=== PATIENT | male | born 1980 | race Two or more races ===

== ENCOUNTER 2020-09-27 08:19 | Outpatient (REF) | payer OTHER, SELFPAY ==
--- NOTE | ~2020-09-27 | CT_ITS ---
EXAMINATION: CT CHEST WITHOUT CONTRAST CLINICAL INFORMATION: Pulmonary nodules. COMPARISON: CT chest 03/01/2020 TECHNIQUE: Multidetector volumetric CT imaging of the chest was done. Axial MIP volume rendering provided. Sagittal and coronal reformatted images were obtained. This CT examination was performed using dose optimization techniques as appropriate, variously including the following: *Automated exposure control *Adjustment of mA and/or kV according to patient size (this includes techniques or standardized protocols for targeted exams where dose is matched to indication/reason for exam; i.e. extremities or head) *Use of iterative reconstruction technique DLP: 193 mGy-cm FINDINGS: BANK CREDIT CARD COLLECTION CLERK: The expanded lungs are unremarkable. LUNGS: There is 2 mm nodule along the superior aspect of the left major fissure, axial image 132/5 probable intrafissural lymph node. A 2 mm nodule left upper lobe axial image 237/5. No additional pulmonary nodules seen. There is no mass or ground-glass density. MEDIASTINUM: The thyroid lobes are symmetric and normal. The central trachea and the bronchi are widely patent. Heart size and the great vessels are normal caliber. There is no pericardial effusion. No abnormal mediastinal or hilar lymph nodes seen. PLEURA: There is no pleural effusion. No pleural mass or thickening. AXILLA: No lymphadenopathy. UPPER ABDOMEN: The liver is diffusely attenuated. Otherwise, the rest of the liver, spleen, pancreas, and bilateral adrenal glands are unremarkable. OSSEOUS STRUCTURES: No lytic or sclerotic process seen. There is mild posterior spondylosis T6-T7 disc level. CT/CT chest wo con IMPRESSION: Stable 2 mm nodule along the left superior major fissure, likely intrafissural lymph node. 2 mm nodule lateral segment is stable. No new nodules seen.
== END 2020-09-27 08:20 | disposition home or self-care (01) ==
LOC: HO.CT 08:19
PROVIDERS: Visit Provider Internal Medicine Pulmonary Disease
DX: R91.8 Other nonspecific abnormal finding of lung field (principal)
CPT/HCPCS: 71250

== ENCOUNTER 2020-11-22 10:30 | Outpatient (REF) | payer OTHER, SELFPAY ==
--- NOTE | ~2020-11-22 | CT_ITS ---
EXAMINATION: CT ABDOMEN WITHOUT AND WITH CONTRAST CLINICAL INFORMATION: Right adrenal mass COMPARISON: Previous CT scans most recent CT from August 2020 from [facility] and abdominal MRI May 2019 TECHNIQUE: Contiguous axial thin section helical images of the abdomen were performed before and after the administration of oral contrast and 85 mL of Omnipaque 350 intravenous contrast. The data set was reformatted in the coronal and sagittal planes and reviewed on an independent workstation. This CT examination was performed using dose optimization techniques as appropriate, variously including the following: *Automated exposure control *Adjustment of mA and/or kV according to patient size (this includes techniques or standardized protocols for targeted exams where dose is matched to indication/reason for exam; i.e. extremities or head) *Use of iterative reconstruction technique DLP: 857 mGy-cm FINDINGS: LUNG BASES: The lung bases are clear. LIVER, GALLBLADDER, AND BILIARY TREE: The liver is low in attenuation suggestive of fatty infiltration. No focal liver lesion is seen. PANCREAS: Normal SPLEEN: Normal ADRENAL GLANDS AND KIDNEYS: The left adrenal gland has been removed. There is abnormal contour to the body of the right adrenal gland measuring 1 cm questionable for a small nodule. This is similar to recent exams. Hounsfield units are difficult to determine due to small size. Hounsfield units pre-IV contrast measure between -10 and 3. Hounsfield units post-IV contrast measure 54. Delayed Hounsfield units post-IV contrast measure 27. Relative washout measures 50%. This is suggestive of a benign lipid rich adenoma. BOWEL LOOPS: Normal LYMPH NODES: Normal. VASCULAR: Unremarkable. BONES: There are degenerative changes of the spine. CT/CT abdomen wo/w con IMPRESSION: The left adrenal gland has been removed. There is a stable small right adrenal nodule measuring 1 cm suggestive of a benign lipid rich adenoma. Fatty infiltration of the liver.
== END 2020-11-22 10:31 | disposition home or self-care (01) ==
LOC: HO.CT 10:30
PROVIDERS: Visit Provider Internal Medicine
DX: E27.8 Other specified disorders of adrenal gland (principal)
CPT/HCPCS: 74170

== ENCOUNTER 2020-12-01 06:44 | Outpatient (REF) | payer OTHER, SELFPAY ==
[2020-12-02 17:47] LABS: Adrenocorticotropic Hormone <5 pg/mL (6-50)
[2020-12-07 15:36] LABS: Dexamethasone 444 ng/dL
== END 2020-12-01 06:45 | disposition home or self-care (01) ==
LOC: HO.LAB 06:44
PROVIDERS: PCP Internal Medicine; Visit Provider Internal Medicine
DX: D35.00 Benign neoplasm of unspecified adrenal gland (principal)
CPT/HCPCS: 36415; 80299; 82024; 82533

== ENCOUNTER → 2020-12-08 10:39 | Outpatient (BNVA) | payer OTHER, SELFPAY | PROVIDERS: PCP Internal Medicine; Visit Provider Internal Medicine ==

== ENCOUNTER → 2021-02-24 14:47 | Outpatient (BNVA) | payer OTHER, SELFPAY | PROVIDERS: PCP Internal Medicine; Visit Provider Internal Medicine ==

== ENCOUNTER 2021-04-04 08:57 | Outpatient (REF) | payer OTHER, SELFPAY ==
[2021-04-04 09:47] LABS: Creatinine, mg/dL 189.58
[2021-04-04 12:46] LABS: Creatinine, 24Hr Urine 1.9 G/Day (1.0-2.0); Total Volume 24 Hour Urine 1025 mL
[2021-04-08 14:41] LABS: Metanephrine, Free 24U 133 mcg/24 h (58-203); Normetanephrine, Free 24U 361 mcg/24 h (88-649); Total Metanephrine, Free 24U 494 mcg/24 h (182-739); Total Volume 24U 1025 mL
[2021-04-11 16:37] LABS: CATF, 24 Ur Volume 1025 mL; CATF-24Ur Creatinine 1.89 g/24 h (0.50-2.15); Catecholamines,Tot. (E+NE) 24U 54 mcg/24 h (26-121); Dopamine, 24 Ur 512 mcg/24 h (52-480); Norepinephrine, 24 Ur 54 mcg/24 h (15-100)
== END 2021-04-04 08:58 | disposition home or self-care (01) ==
LOC: HO.LNP 08:57
PROVIDERS: Visit Provider Internal Medicine
DX: D35.00 Benign neoplasm of unspecified adrenal gland (principal)
CPT/HCPCS: 82384; 82570; 83835

== ENCOUNTER 2021-06-27 09:20 | Outpatient (REF) | payer OTHER, SELFPAY ==
[2021-06-27 10:17] LABS: Anion Gap 14 (12-20); Blood Urea Nitrogen 12 mg/dL (9-16); Calcium 9.3 mg/dL (8.4-10.2); Carbon Dioxide 24 mmol/L (22-29); Chloride 108 mmol/L (96-108); Estimated Glomerular Filt Rate > 60; Glucose Random 98 mg/dL (60-115); Potassium 4.7 mmol/L (3.3-5.1); Sodium 141 mmol/L (135-145)
[2021-06-29 03:37] LABS: DHEA Sulfate 234 mcg/dL (70-495)
[2021-06-29 21:27] LABS: Adrenocorticotropic Hormone 25 pg/mL (6-50)
[2021-07-01 11:01] LABS: Renin 0.28 ng/mL/h (0.25-5.82)
[2021-07-03 11:01] LABS: Metanephrine, Free 40 pg/mL (<=57); Normetanephrines, Free 68 pg/mL (<=148); Total Metanephrine, Free 108 pg/mL (<=205)
[2021-07-11 18:21] LABS: Catecholamine Frac, Total 604 pg/mL
== END 2021-06-27 09:21 | disposition home or self-care (01) ==
LOC: HO.LAB 09:20
PROVIDERS: PCP Internal Medicine; Visit Provider Internal Medicine
DX: D35.00 Benign neoplasm of unspecified adrenal gland (principal)
CPT/HCPCS: 36415; 80048; 82024; 82088; 82384; 82627; 83835; 84244

== ENCOUNTER → 2021-08-08 09:24 | Outpatient (BNVA) | payer OTHER, SELFPAY | PROVIDERS: PCP Internal Medicine; Visit Provider Internal Medicine ==

== ENCOUNTER 2022-07-24 09:34 | Outpatient (REF) | payer OTHER, SELFPAY ==
--- NOTE | ~2022-07-24 | MR_ITS ---
EXAMINATION: MR ABDOMEN WITHOUT AND WITH CONTRAST CLINICAL INFORMATION: Benign neoplasm of unspecified adrenal gland COMPARISON: CT 11/24/2021 and earlier TECHNIQUE: MR abdomen was performed without and with use of 10 mL intravenous Gadavist gadolinium contrast. Postcontrast images are performed in multiphase dynamic sequences. Imaging was performed in 3 planes. FINDINGS: LUNG BASES: The visualized lung bases are unremarkable. LIVER, GALLBLADDER, AND BILIARY TREE: There is diffuse loss of signal on opposed phase gradient echo T1-weighted images consistent with diffuse hepatic steatosis. No focal liver lesion seen. No biliary ductal dilatation. The gallbladder is unremarkable with no evidence of gallbladder wall thickening, or obvious pericholecystic inflammatory changes. PANCREAS: Unremarkable. SPLEEN: Normal. ADRENAL GLANDS: Left adrenal gland surgically absent. No recurrent mass in the adrenalectomy bed. Normal appearance of the right adrenal gland. No thickening or nodule seen. KIDNEYS AND URETERS: The kidneys are normal in size, shape, and enhance symmetrically. No hydronephrosis. No perinephric stranding. GASTROINTESTINAL TRACT: No bowel obstruction. No ascites or fluid collection. ABDOMINAL WALL: No significant hernia is appreciated. LYMPH NODES: No lymphadenopathy. VASCULAR: Unremarkable. OSSEOUS STRUCTURES: Marrow signal normal. MR/MR abdomen wo/w con IMPRESSION: Normal appearance of the right adrenal gland. No right adrenal mass or thickening seen. Hepatic steatosis.
== END 2022-07-24 09:35 | disposition home or self-care (01) ==
LOC: HO.MRI 09:34
PROVIDERS: PCP Internal Medicine; Visit Provider Internal Medicine
DX: D35.00 Benign neoplasm of unspecified adrenal gland (principal)
CPT/HCPCS: 74183; A9585

== ENCOUNTER 2022-11-06 10:39 | Emergency (ER) | payer OTHER, SELFPAY ==
--- NOTE | ~2022-11-06 | XR_ITS ---
EXAMINATION: XR CHEST CLINICAL INFORMATION: Right-sided pain COMPARISON: Previous chest CT most recent 2020 TECHNIQUE: 2 views of the chest were obtained. FINDINGS: No significant abnormality is noted involving the heart, lungs, mediastinum, bony thorax or soft tissues. XR/XR chest 2V IMPRESSION: Unremarkable examination.
[2022-11-06 11:04] VITALS: BP 132/82; PULSE 86; RESP 19; TEMP 36.6; O2SAT 99; BMI 34.0
--- NOTE | 2022-11-06 11:04 | ED.GENADULT ---
HPI - General Adult General Chief complaint: Chest Pain Stated complaint: Lung issues Related Data Home Medications Medication Instructions Recorded Confirmed omeprazole 20 mg capsule,delayed 20 mg PO QAM PRN 12/08/20 08/08/21 release Allergies Allergy/AdvReac Type Severity Reaction Status Date / Time No Known Allergies Allergy Verified 08/08/21 11:27 [facility] Past Medical History Medical History Adrenal adenoma Surgical History H/O partial adrenalectomy Family History Family History Father No problems noted. Mother Diabetes Social History Social History Alcohol intake: current Alcohol intake frequency: does not drink Patient Tobacco Use Status: Former Tobacco user Advance Directives: No Advance Directives Information Provided: No Physical Exam ED Vital Signs: BMI result Body Mass Index 34.0 Course Course Course Narrative: RME - 42 yo male with history of an adrenal incidentaloma s/p partial adrenalectomy who presents to the ER for evaluation of 10/10 right lung pain for the last month. Occasional SOB. Poor historian. He states he had a black thing in his lung and has a seen a ortho/prosthetic aide for it about a year ago. Plan: CXR, EKG, labs Reevaluation(s) Reevaluation #1: patient eloped from the ER Medical Decision Making Lab Data 11/06/22 11:28 11/06/22 11:28 Labs: Lab Results 11/06/22 11/06/22 Range/Units 11:28 11:28 WBC 8.2 (4.8-10.8) X10*3/uL RBC 5.66 (4.60-5.80) X10*6/uL Hgb 14.9 (14.0-18.0) g/dl Hct 45.8 (42.0-52.0) % MCV 80.9 (80.0-98.0) fL MCH 26.3 L (27.0-33.0) pg MCHC 32.5 (31.0-36.0) g/dl RDW 13.8 (11.0-16.0) % Plt Count 317 (160-400) X10*3/uL MPV 8.7 L (9.4-12.4) fL Immature Gran % (Auto) 0.1 (0.0-0.4) % Neut % (Auto) 56.8 (45-73) % Lymph % (Auto) 32.2 (20-40) % [place] % (Auto) 7.6 (2-11) % Eos % (Auto) 2.6 (0-4) % Baso % (Auto) 0.7 (0-2) % Lymph # (Auto) 2.6 (1.2-4.9) X10*3/uL [place] # (Auto) 0.6 (0.1-1.2) X10*3/uL Eos # (Auto) 0.2 (0.0-0.4) X10*3/uL Baso # (Auto) 0.1 (0.0-0.2) X10*3/uL Abs Immat Gran (auto) 0.01 (0.00-0.03) X10*3/uL Absolute Neuts (auto) 4.6 (2.0-8.3) x10*3/uL Absolute Nucleated RBC 0.000 (0.0-0.012) X10*3/uL Nucleated RBC % (auto) 0.0 (0.0-0.2) /100WBC Sodium 141 (135-145) mmol/L Potassium 4.0 (3.3-5.1) mmol/L Chloride 108 (96-108) mmol/L Carbon Dioxide 25 (22-29) mmol/L Anion Gap 12 (12-20) BUN 19 H (9-16) mg/dL Creatinine 0.78 (0.5-1.4) mg/dL Estim Creat Clear Calc 145.3 Estimated GFR > 60 Random Glucose 126 H (60-115) mg/dL Calcium 9.2 (8.4-10.2) mg/dL Magnesium 2.0 (1.6-2.6) mg/dL Total Bilirubin 0.4 (0.0-1.0) mg/dL Direct Bilirubin 0.1 (0.0-0.5) mg/dL AST 27 (5-37) U/L ALT 61 H (0-40) U/L Alkaline Phosphatase 117 (39-117) U/L Total Protein 7.3 (6.5-8.0) g/dL Albumin 4.2 (3.5-5.0) g/dL Discharge Plan Discharge Clinical Impression: Chest pain Patient Disposition: Elopement Prescriptions: No Action omeprazole 20 mg capsule,delayed release(DR/EC) 20 mg PO QAM PRN Interventions: ED Discharge Assessment Last Done: 11/06/22 16:21 Discharge Date/Time: 11/06/22 16:33
--- NOTE | 2022-11-06 11:07 | ECG_ITS ---
Test Reason : CP Blood Pressure : / mmHG Vent. Rate : 081 BPM Atrial Rate : 081 BPM P-R Int : 150 ms QRS Dur : 092 ms QT Int : 346 ms P-R-T Axes : 044 -03 015 degrees QTc Int : 401 ms Normal sinus rhythm Minimal voltage criteria for LVH, may be normal variant ( R in aVL ) Nonspecific T wave abnormality Abnormal ECG No previous ECGs available Referred By: Nevin Lozano Electronically Signed By:KIARA NATARAJAN MD
[2022-11-06 11:31] LABS: MANUAL DIFF FLAG NO
[2022-11-06 11:39] LABS: Basophils Absolute Auto 0.1 X10*3/uL (0.0-0.2); Basophils Percent Auto 0.7 % (0-2); Eosinophils Absolute Auto 0.2 X10*3/uL (0.0-0.4); Eosinophils Percent Auto 2.6 % (0-4); Hematocrit 45.8 % (42.0-52.0); Hemoglobin 14.9 g/dl (14.0-18.0); Imm Gran Abs Auto 0.01 X10*3/uL (0.00-0.03); Imm Gran Pct Auto 0.1 % (0.0-0.4); Lymphocytes Absolute Auto 2.6 X10*3/uL (1.2-4.9); Lymphocytes Percent Auto 32.2 % (20-40); Mean Corpuscular HGB Conc 32.5 g/dl (31.0-36.0); Mean Corpuscular Hemoglobin 26.3 pg (27.0-33.0); Mean Corpuscular Volume 80.9 fL (80.0-98.0); Mean Platelet Volume 8.7 fL (9.4-12.4); Monocytes Absolute Auto 0.6 X10*3/uL (0.1-1.2); Monocytes Percent Auto 7.6 % (2-11); Neutrophils Absolute Auto 4.6 x10*3/uL (2.0-8.3); Neutrophils Percent Auto 56.8 % (45-73); Platelet Count 317 X10*3/uL (160-400); Red Blood Count 5.66 X10*6/uL (4.60-5.80); Red Cell Distribution Width 13.8 % (11.0-16.0); White Blood Count 8.2 X10*3/uL (4.8-10.8)
[2022-11-06 11:48] LABS: Alanine Aminotransferase 61 U/L (0-40); Albumin Level 4.2 g/dL (3.5-5.0); Alkaline Phosphatase 117 U/L (39-117); Anion Gap 12 (12-20); Aspartate Amino Transferase 27 U/L (5-37); Bilirubin Direct 0.1 mg/dL (0.0-0.5); Bilirubin Total 0.4 mg/dL (0.0-1.0); Blood Urea Nitrogen 19 mg/dL (9-16); Calcium 9.2 mg/dL (8.4-10.2); Carbon Dioxide 25 mmol/L (22-29); Chloride 108 mmol/L (96-108); Creatinine Clr Calc Pharmacy 145.3; Estimated Glomerular Filt Rate > 60; Glucose Random 126 mg/dL (60-115); Sodium 141 mmol/L (135-145); Total Protein 7.3 g/dL (6.5-8.0)
--- NOTE | 2022-11-06 16:21 | PC.NURSE ---
called to come into Ed from waiting room x 3, no answer from patient
== END 2022-11-06 16:33 | disposition left against medical advice (07) ==
PROVIDERS: Physician Assistant; Emergency Provider Emergency Medicine; PCP Internal Medicine
DX: R07.89 Other chest pain (principal); Z79.899 Other long term (current) drug therapy
CPT/HCPCS: 36415; 71046; 80048; 80076; 83735; 85025; 93005; 99283

== ENCOUNTER 2022-11-11 07:03 | Outpatient (REF) | payer OTHER, SELFPAY ==
[2022-11-11 08:11] LABS: Anion Gap 12 (12-20); Blood Urea Nitrogen 18 mg/dL (9-16); Calcium 9.6 mg/dL (8.4-10.2); Carbon Dioxide 28 mmol/L (22-29); Chloride 105 mmol/L (96-108); Estimated Glomerular Filt Rate > 60; Glucose Random 112 mg/dL (60-115); Potassium 4.5 mmol/L (3.3-5.1); Sodium 140 mmol/L (135-145)
[2022-11-11 08:39] LABS: Cortisol Random 11.7 ug/dL
[2022-11-13 09:04] LABS: DHEA Sulfate 197 mcg/dL (61-442)
[2022-11-18 17:34] LABS: Metanephrine, Free 31 pg/mL (<=57); Normetanephrines, Free 48 pg/mL (<=148); Total Metanephrine, Free 79 pg/mL (<=205)
[2022-11-18 18:09] LABS: Adrenocorticotropic Hormone 37 pg/mL (6-50)
[2022-11-20 12:24] LABS: Renin 0.17 ng/mL/h (0.25-5.82)
[2022-11-22 16:58] LABS: Catecholamine Frac, Total 349 pg/mL
== END 2022-11-11 07:04 | disposition home or self-care (01) ==
LOC: HO.LAB 07:03
PROVIDERS: PCP Internal Medicine; Visit Provider Internal Medicine
DX: D35.00 Benign neoplasm of unspecified adrenal gland (principal)
CPT/HCPCS: 36415; 80048; 82024; 82088; 82384; 82533; 82627; 83835; 84244

== ENCOUNTER → 2022-11-22 09:48 | Outpatient (BNVA) | payer OTHER, SELFPAY | PROVIDERS: PCP Internal Medicine; Visit Provider Internal Medicine ==

== ENCOUNTER 2023-02-12 09:15 | Outpatient (REF) | payer OTHER, SELFPAY ==
--- NOTE | ~2023-02-12 | US_ITS ---
EXAMINATION: US ABDOMEN COMPLETE CLINICAL INFORMATION: Elevated LFTs. COMPARISON: MRI abdomen without and with contrast 07/24/2022. CT abdomen without and with contrast 11/22/2020. TECHNIQUE: Real-time imaging of the abdominal viscera. FINDINGS: PANCREAS: Not visualized due to shadowing from overlying bowel gas. ABDOMINAL AORTA: The proximal, mid, and distal segments are normal in caliber. INFERIOR VENA CAVA: Visualized portions are normal. LIVER: The liver is normal in size. Increased coarsening and echogenicity of the liver parenchyma with focal sparing adjacent to gallbladder fossa. No focal hepatic lesion. There is no intrahepatic biliary duct dilatation seen. GALLBLADDER: Normal. The gallbladder is physiologically distended without evidence of stones, sludge, polyps, wall thickening or pericholecystic fluid. COMMON BILE DUCT: Normal in caliber measuring 0.5 cm in diameter. RIGHT KIDNEY: Normal. No hydronephrosis. No renal calculi or focal parenchymal lesions. The kidney measures 12.4 cm in maximum dimension. LEFT KIDNEY: Normal. No hydronephrosis. No renal calculi or focal parenchymal lesions. The kidney measures 12.3 cm in maximum dimension. SPLEEN: Normal. The spleen measures 11.3 cm in maximum dimension. FREE FLUID: None. US/US abdomen complete IMPRESSION: Increased coarsening and echogenicity of the liver parenchyma suggesting hepatic steatosis or hepatocellular disease with areas of fatty sparing adjacent to the gallbladder fossa.
== END 2023-02-12 09:16 | disposition home or self-care (01) ==
LOC: HO.US 09:15
PROVIDERS: Visit Provider Internal Medicine
DX: R79.89 Other specified abnormal findings of blood chemistry (principal)
CPT/HCPCS: 76700

== ENCOUNTER 2023-03-01 09:57 | Outpatient (AMB) | payer OTHER, SELFPAY ==
[2023-03-01 10:02] VITALS: BP 127/70; PULSE 89; O2SAT 96; BMI 36.0
--- NOTE | 2023-03-01 10:02 | A.OFFVIS_ITS ---
Intake Vital Signs 03/01/23 10:02 Height 5 ft 9 in Weight 243 lb 9.773 oz BMI 36.0 BP 127/70 Blood Pressure Location Rt brachial Position Sitting Pulse 89 Pulse Source Pulse Oximeter Pulse Oximetry (%) 96 Oxygen Delivery Method Room Air Intake Visit Reasons: pulmonary nodules Allergies No Known Allergies Allergy (Verified 03/01/23 10:04) HPI pulmonary nodules HPI Details 42-year-old gentleman, nonsmoker, with underlying history left adrenal adenoma, excised, an incidental finding of two 2 mm left-sided pulmonary nodules presents for evaluation. Patient denies any family history of lung disease. He denies any other pulmonary related concerns or complaints. [facility] Medical History Adrenal adenoma Surgical History H/O partial adrenalectomy Family History Father No problems noted. Mother Diabetes Social History Alcohol intake: current Alcohol intake frequency: does not drink Patient Tobacco Use Status: Former Tobacco user Review of Systems Const Denies daytime sleepiness, Denies excessive sweating, Denies fatigue, Denies fever(s), Denies lethargy, Denies malaise, Denies night sweats, Denies snoring and Denies weight loss Eyes Denies blurry vision and Denies itchy eyes ENT Denies nasal congestion, Denies post nasal drip, Denies sinus pain, Denies sinus pressure and Denies other ( Thrush) Card Denies chest pain, Denies pedal edema, Denies dyspnea, Denies orthopnea and Denies paroxysmal nocturnal dyspnea Resp Denies cough, Denies hemoptysis, Denies excessive phlegm production, Denies dyspnea, Denies snoring and Denies wheezing GI Denies abdominal pain and Denies heartburn Musc Denies myalgias, Denies arthralgias and Denies joint swelling Skin/Breast Denies rash Neuro Denies memory loss and Denies seizure-like activity Psych Denies abnormal sleep pattern, Denies anxiety and Denies memory loss Endo Denies excessive sweating, Denies fatigue and Denies heat intolerance Macho/Lymph Denies easy bruising Aller/Immun Denies itchy eyes, Denies seasonal rhinorrhea and Denies wheezing Physical Exam Vital Signs: Last Vital Signs Pulse 89 03/01/23 10:02 BP 127/70 03/01/23 10:02 Pulse Ox 96 03/01/23 10:02 Oxygen Delivery Method Room Air 03/01/23 10:02 BMI result Body Mass Index 36.0 Const General: no acute distress and alert Nutritional Appearance: not obese Orientation/consciousness: Other orientation findings ( oriented) HEENT Head: Yes atraumatic Eyes General: appearance normal, both eyes and all related structures Sclerae: sclerae normal EOM: EOMs intact bilaterally Neck Neck: Yes supple Lymphatic: no lymphadenopathy noted Resp Effort & Inspection: normal respiratory effort and no use of accessory muscles Auscultation: clear to auscultation bilaterally Cardio Rate: regular rate Rhythm: regular rhythm Heart sounds: no gallops, no murmurs and no rubs Skin General skin exam: other ( warm) Extrem General: No clubbing, No cyanosis and No edema Assessment & Plan Assessment & Plan (1) Pulmonary nodules: Code(s): R91.8 - Other nonspecific abnormal finding of lung field Plan: Small left-sided pulmonary nodules and patient with exercise test adrenal adenoma. Will repeat CT scan in 12 months from prior in September of 2023, ordered. Orders: Orders CT chest wo IV con 09/30/23 R91.8 - Other nonspecific abnormal finding of lung field Coding Level of Care Code New Pt Level 3 (94279) Diagnoses Pulmonary nodules R91.8
== END 2023-03-01 10:23 | disposition home or self-care (01) ==
PROVIDERS: PCP Internal Medicine; Visit Provider Internal Medicine Pulmonary Disease
DX: R91.8 Other nonspecific abnormal finding of lung field (principal)
CPT/HCPCS: 99203

== ENCOUNTER → 2023-03-01 09:57 | Outpatient (BNVA) | payer OTHER, SELFPAY | PROVIDERS: PCP Internal Medicine; Visit Provider Internal Medicine Pulmonary Disease ==

== ENCOUNTER 2023-09-03 09:02 | Outpatient (REF) | payer OTHER, SELFPAY ==
--- NOTE | ~2023-09-03 | CT_ITS ---
EXAMINATION: CT CHEST WITHOUT CONTRAST CLINICAL INFORMATION: Pulmonary nodule COMPARISON: CT scan of chest on 09/27/2020 TECHNIQUE: Multidetector volumetric CT imaging of the chest was done. Axial MIP volume rendering provided. Sagittal and coronal reformatted images were obtained. This CT examination was performed using dose optimization techniques as appropriate, variously including the following: *Automated exposure control *Adjustment of mA and/or kV according to patient size (this includes techniques or standardized protocols for targeted exams where dose is matched to indication/reason for exam; i.e. extremities or head) *Use of iterative reconstruction technique DLP: 214 mGy-cm FINDINGS: LUNGS: Oblique horizontal platelike atelectasis is seen at lateral left lingular lobe inferior segment and anterior left lower lobe anteromedial basal segment. -Nodule #1 (Series 5, image 252): 2.2 mm solid nodule, left upper lobe anterior segment, previously 2 mm. -Nodule #1 (Series 5, image 273): 2.4 mm solid nodule, anterior lateral left lower lobe superior segment attached to lateral left major fissure, previously 2 mm. PLEURA: No pleural effusion or pneumothorax is seen. PERICARDIUM: No pericardial effusion is seen. MEDIASTINUM AND RILEY: Inadequate evaluation of the mediastinal and hilar lymph nodes due to absence of IV contrast filling the surrounding blood vessels. TRACHEOBRONCHIAL TREE: Trachea and bilateral mainstem bronchi are patent. THORACIC AORTA: The thoracic aorta is normal in size and smoothly patent. CORONARY ARTERY CALCIFICATIONS: None PULMONARY ARTERIES: The main pulmonary arteries appear to be normal in size. CHEST WALL AND LOWER NECK: The subcutaneous and muscular chest wall are intact with no focal lesion. No abnormal mass lesion could be seen in the visualized lower neck. BONES: Multilevel advanced degenerative thoracic disc disease, posterior T6-T7 and T7-T8 bridging syndesmophytes are seen impinging the thoracic spinal canal. No fracture or dislocation. No focal bone lesion diagnostic of metastatic disease could be seen in the thorax. VISUALIZED UPPER ABDOMEN: Bilateral adrenal glands are not enlarged. There is hepatic steatosis, mean attenuation of 26.8 Hounsfield units, compared to splenic attenuation of 44.[address]/CT chest wo IV con IMPRESSION: 1. No significant change in the appearance of the left upper lobe and left lower lobe lung micronodules. 2. Unchanged Hepatic steatosis. 3. Unchanged Multilevel advanced degenerative thoracic disc disease and posterior bridging syndesmophytes impinging the thoracic spinal canal at T6-T7 and T7-T8 level. According to the UPDATED 2017 Fleischner Society recommendations, the advised follow-up imaging for nodules <6mm in the upper lobes is not necessarily required in low-risk patients. In high-risk patients with a nodule in the upper lobe and/or demonstrating suspicious morphology, an optional CT follow-up at 12 months may be obtained. If stable at 12 months, no further follow-up is recommended. The nodules have been stable for almost 3 years. Fleischner guidelines were followed.
== END 2023-09-03 09:03 | disposition home or self-care (01) ==
LOC: HO.CT 09:02
PROVIDERS: PCP Internal Medicine; Visit Provider Internal Medicine Pulmonary Disease
DX: R91.8 Other nonspecific abnormal finding of lung field (principal)
CPT/HCPCS: 71250

== ENCOUNTER 2023-09-20 09:58 | Outpatient (AMB) | payer OTHER, SELFPAY ==
[2023-09-20 10:07] VITALS: BP 132/82; PULSE 88; O2SAT 96; BMI 37.3
--- NOTE | 2023-09-20 10:07 | A.OFFVIS_ITS ---
Intake Vital Signs 09/20/23 10:07 Height 5 ft 9 in Weight 252 lb 6.868 oz BMI 37.3 BP 132/82 Blood Pressure Location Lt brachial Position Sitting Pulse 88 Pulse Source Doppler Pulse Oximetry (%) 96 Oxygen Delivery Method Room Air Intake Visit Reasons: pulm nodules Allergies No Known Allergies Allergy (Verified 09/20/23 10:14) HPI pulm nodules HPI Details 43-year-old gentleman, nonsmoker, with u nderlying history left adrenal adenoma, excised, an incidental finding of two 2 mm left-sided pulmonary nodules presents for evaluation. Patient denies any family history of lung disease. He denies any other pulmonary related concerns or complaints. He completed his follow-up CT chest in August of 2023 showing stable pulmonary nodules. [facility] Medical History Adrenal adenoma Surgical History H/O partial adrenalectomy Family History Father No problems noted. Mother Diabetes Social History (Reviewed 09/20/23 @ 10:14 by Hayley Arredondo [facility]) Alcohol intake: current Alcohol intake frequency: does not drink Patient Tobacco Use Status: Former Tobacco user Review of Systems Const Denies daytime sleepiness, Denies excessive sweating, Denies fatigue, Denies fever(s), Denies lethargy, Denies malaise, Denies night sweats, Denies snoring and Denies weight loss Eyes Denies blurry vision and Denies itchy eyes ENT Denies nasal congestion, Denies post nasal drip, Denies sinus pain, Denies sinus pressure and Denies other ( Thrush) Card Denies chest pain, Denies pedal edema, Denies dyspnea, Denies orthopnea and Denies paroxysmal nocturnal dyspnea Resp Denies cough, Denies hemoptysis, Denies excessive phlegm production, Denies dyspnea, Denies snoring and Denies wheezing GI Denies abdominal pain and Denies heartburn Musc Denies myalgias, Denies arthralgias and Denies joint swelling Skin/Breast Denies rash Neuro Denies memory loss and Denies seizure-like activity Psych Denies abnormal sleep pattern, Denies anxiety and Denies memory loss Endo Denies excessive sweating, Denies fatigue and Denies heat intolerance Macho/Lymph Denies easy bruising Aller/Immun Denies itchy eyes, Denies seasonal rhinorrhea and Denies wheezing Physical Exam Vital Signs: Last Vital Signs Pulse 88 09/20/23 10:07 BP 132/82 09/20/23 10:07 Pulse Ox 96 09/20/23 10:07 Oxygen Delivery Method Room Air 09/20/23 10:07 BMI result Body Mass Index 37.3 Const General: no acute distress and alert Nutritional Appearance: obese Orientation/consciousness: Other orientation findings ( oriented) HEENT Head: Yes atraumatic Eyes General: appearance normal, both eyes and all related structures Sclerae: sclerae normal EOM: EOMs intact bilaterally Neck Neck: Yes supple Lymphatic: no lymphadenopathy noted Resp Effort & Inspection: normal respiratory effort and no use of accessory muscles Auscultation: clear to auscultation bilaterally Cardio Rate: regular rate Rhythm: regular rhythm Heart sounds: no gallops, no murmurs and no rubs Skin General skin exam: other ( warm) Extrem General: No clubbing, No cyanosis and No edema Assessment & Plan Assessment & Plan (1) Pulmonary nodules: Code(s): R91.8 - Other nonspecific abnormal finding of lung field Plan: Results of CT chest from August of 2023 reviewed, stable bilateral pulmonary nodules. Will repeat CT chest, if stable at that time, then no further imaging follow-up would be required. Orders: Orders CT chest wo IV con 08/22/24 R91.8 - Other nonspecific abnormal finding of lung field Coding Level of Care Code Est Pt Level 4 (41766) Diagnoses Pulmonary nodules R91.8
== END 2023-09-20 10:21 | disposition home or self-care (01) ==
PROVIDERS: PCP Internal Medicine; Visit Provider Internal Medicine Pulmonary Disease
DX: R91.8 Other nonspecific abnormal finding of lung field (principal)
CPT/HCPCS: 99214

== ENCOUNTER → 2023-09-20 09:58 | Outpatient (BNVA) | payer OTHER, SELFPAY | PROVIDERS: PCP Internal Medicine; Visit Provider Internal Medicine Pulmonary Disease ==

== ENCOUNTER 2023-12-17 07:54 | Outpatient (REF) | payer OTHER, SELFPAY ==
--- NOTE | ~2023-12-17 | CT_ITS ---
EXAMINATION: CT ABDOMEN WITHOUT AND WITH CONTRAST CLINICAL INFORMATION: Benign neoplasm of adrenal gland COMPARISON: CT abdomen from 11/22/2020, MRI of abdomen from 12/22/2022 TECHNIQUE: Contiguous axial thin section helical images of the abdomen were performed before and after the administration of 85 mL of Omnipaque 350 intravenous contrast. The data set was reformatted in the coronal and sagittal planes and reviewed on an independent workstation. This CT examination was performed using dose optimization techniques as appropriate, variously including the following: *Automated exposure control *Adjustment of mA and/or kV according to patient size (this includes techniques or standardized protocols for targeted exams where dose is matched to indication/reason for exam; i.e. extremities or head) *Use of iterative reconstruction technique DLP: 628 mGy-cm FINDINGS: LUNG BASES: Lung bases are clear LIVER, GALLBLADDER, AND BILIARY TREE: Liver is of normal attenuation without intrahepatic masses, ductal dilatation.. Gallbladder is unremarkable. PANCREAS: There is no pancreatic masses, ductal dilatation or peripancreatic stranding. SPLEEN: Unremarkable ADRENAL GLANDS AND KIDNEYS: Left adrenal gland is surgically absent. Right adrenal gland is unremarkable. BOWEL LOOPS: Visualized bowel is normal. Stomach is partially distended. LYMPH NODES: There is no lymphadenopathy. VASCULAR: Unremarkable. BONES: Visualized lumbar spine revealed mild degenerative changes lower thoracic spine with Schmorl's hernias. CT/CT abdomen wo/w IV con IMPRESSION: Status post left adrenalectomy. Fleischner guidelines were followed.
[2023-12-17] MEDS: iohexoL 350 MG/ML 100 ML INFUS..BTL IV (08:31)
== END 2023-12-17 07:55 | disposition home or self-care (01) ==
LOC: HO.CT 07:54
PROVIDERS: PCP Internal Medicine; Visit Provider Internal Medicine Endocrinology, Diabetes & Metabolism
DX: D35.00 Benign neoplasm of unspecified adrenal gland (principal)
CPT/HCPCS: 74170; Q9967

== ENCOUNTER 2024-01-21 09:57 | Outpatient (AMB) | payer OTHER, SELFPAY ==
[2024-01-21 10:02] VITALS: BP 114/78; PULSE 88; BMI 35.9
--- NOTE | 2024-01-21 10:02 | MHC.OFFVIS ---
Vital Signs 01/21/24 10:02 Height 5 ft 9 in Weight 243 lb 6.245 oz BMI 35.9 BP 114/78 Blood Pressure Location Lt brachial Position Sitting Pulse 88 Pulse Source Pulse Oximeter Intake Visit Reasons: F/U Adrenal adenoma/LVM Intake Note: Patient present today for adrenal adenoma follow up visit. Pharmacy Customer Care Specialist Required: No Accompanied by: Self / Same As Patient Allergies No Known Allergies Allergy (Verified 01/21/24 10:06) Medication List - Last Reconciled 01/21/24 by Nomi Colon MD No Known Home Meds HPI Comments Details: 43 YO M with no significant PMHx who is seen in F/U for an adrenal incidentaloma. The patient last saw Dr. Caballero on 11/22/2022 He had an MRI of the abdomen/pelvis completed for back pain. This revealed a 1.8 cm indeterminate appearing L adrenal mass. There was no loss of signal on out of phase sequences, so this was not consistent with a lipid rich adenoma. He also had a CT scan completed 11/30/18 for back pain. This revealed a 2.0 cm L adrenal adenoma measuring 49 HU, however this was measured postcontrast. This was repeated as adrenal protocol 09/01/2019 with identification of a 2.1 cm L adrenal mass with precontrast HU measuring 31 HU. No relative washout was given. Absolute washout of 77.9% was given. This was not consistent with a lipid rich adenoma. After our initial visit we checked a full biochemical workup which was negative for aminta's disease with a normal DSST. His 24 hour urine Dopamine level was elevated to 559. He was not taking any medications at the time. The remainder of his 24 hour urine catecholamines and metanephrines were WNL. The 24 hour urine collection was an adequate sample with a volume of 1.1 L and a Cr of 1.6. His 24 hour urine collection was repeated 09/01/2019 with urine Dopamine levels again elevated to 623 with a Volume of 1.45 L and a Cr of 2.13. There were no other abnormalities noted. His 24 hour urine collection was then repeated 10/12/2019 at [facility] with a total volume of 1.2 L, Creatinine 1.2 and 24 hour urine Dopamine WNL at 184. This was otherwise WNL as well. He was sent for a Dotatate PET CT which revealed an intensely avid 1.2 cm lesion within the R adrenal with max SUV 17, and an intensely avid 2.0 cm lesion within the L adrenal with max SUV 18. He did mention occasional spells with headache and flushing. He denied any abdominal pain or diarrhea during those times. He was referred to Endocrine surgery and after preparation with Doxazosin he underwent a L sided adrenalectomy due to the concern from Pheochromocytoma. 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 He does report that headaches resolved after the surgery. He has no complaints today whatsoever. He had repeat imaging with an MRI of the abdomen 07/24/2022 which revealed no evidence of a mass within the R adrenal gland. Labs remain largely WNL though he did not repeat his urine. Imaging: MRI Abdomen: 07/24/2022 FINDINGS: LUNG BASES: The visualized lung bases are unremarkable.? LIVER, GALLBLADDER, AND BILIARY TREE: There is diffuse loss of signal on opposed phase gradient echo T1-weighted images consistent with diffuse hepatic steatosis. No focal liver lesion seen. No biliary ductal dilatation. The gallbladder is unremarkable with no evidence of gallbladder wall thickening, or obvious pericholecystic inflammatory changes.? PANCREAS: Unremarkable.? SPLEEN: Normal.? ADRENAL GLANDS: Left adrenal gland surgically absent. No recurrent mass in the adrenalectomy bed. Normal appearance of the right adrenal gland. No thickening or nodule seen.? KIDNEYS AND URETERS: The kidneys are normal in size, shape, and enhance symmetrically.? No hydronephrosis.? No perinephric stranding. ? GASTROINTESTINAL TRACT: No bowel obstruction.? No ascites or fluid collection. ? ABDOMINAL WALL: No significant hernia is appreciated.? LYMPH NODES: No lymphadenopathy. VASCULAR: Unremarkable. OSSEOUS STRUCTURES: Marrow signal normal. ? Labs: Laboratory Tests 11/11/22 11/11/22 11/11/22 07:32 07:32 07:32 Sodium 140 Potassium 4.5 Creatinine 0.77 Estimated GFR > 60 Renin Aldosterone 3 DHEA Sulfate 197 Random Cortisol 11.7 ACTH Plasma Free Metaneph Plasma Free Normeta Plas Total Metaneph 11/11/22 11/11/22 11/11/22 07:33 07:33 07:33 Sodium Potassium Creatinine Estimated GFR Renin 0.17 L Aldosterone DHEA Sulfate Random Cortisol ACTH 37 Plasma Free Metaneph 31 Plasma Free Normeta 48 Plas Total Metaneph 79 PFSH Medical History Adrenal adenoma Surgical History H/O partial adrenalectomy Family History Father No problems noted. Mother Diabetes Social History Alcohol intake: current Alcohol intake frequency: does not drink Patient Tobacco Use Status: Former Tobacco user Assessment & Plan Assessment & Plan (1) Adrenal adenoma: Code(s): D35.00 - Benign neoplasm of unspecified adrenal gland Category: Medical Plan: This is a 43-year-old male with a history of left adrenalectomy. Right adrenal gland appeared normal on recent CT scan.. At this point, patient returned to the care of his primary care provider. There is no need for any further endocrine workup or follow-up. Coding Level of Care Code Est Pt Level 3 (90244) Diagnoses Adrenal adenoma D35.00
== END 2024-01-21 10:18 | disposition home or self-care (01) ==
PROVIDERS: PCP Internal Medicine; Visit Provider Internal Medicine Endocrinology, Diabetes & Metabolism
DX: D35.00 Benign neoplasm of unspecified adrenal gland (principal)
CPT/HCPCS: 99213

== ENCOUNTER → 2024-01-21 09:57 | Outpatient (BNVA) | payer OTHER, SELFPAY | PROVIDERS: PCP Internal Medicine; Visit Provider Internal Medicine Endocrinology, Diabetes & Metabolism ==

== ENCOUNTER 2024-08-18 08:35 | Outpatient (REF) | payer OTHER, SELFPAY | END 2024-08-18 08:36 | disposition home or self-care (01) | LOC: HO.CT 08:35 | PROVIDERS: PCP Internal Medicine; Visit Provider Internal Medicine Pulmonary Disease | DX: R91.8 Other nonspecific abnormal finding of lung field (principal) | CPT/HCPCS: 71250 ==

== ENCOUNTER → 2024-08-18 08:36 | Outpatient (BNV) | payer OTHER, SELFPAY | PROVIDERS: PCP Internal Medicine; Visit Provider Radiology Diagnostic Radiology | DX: R91.8 Other nonspecific abnormal finding of lung field (principal) | CPT/HCPCS: 71250 ==

== ENCOUNTER 2025-03-23 08:23 | Outpatient (AMB) | payer OTHER, SELFPAY ==
[2025-03-23 08:25] VITALS: BP 110/80; PULSE 75; O2SAT 95
--- NOTE | 2025-03-23 08:25 | A.OFFVIS_ITS ---
Vital Signs 03/23/25 08:25 Weight 233 lb 11.04 oz BP 110/80 Blood Pressure Location Lt brachial Position Sitting Pulse 75 Pulse Source Pulse Oximeter Pulse Oximetry (%) 95 Oxygen Delivery Method Room Air Intake Visit Reasons: Adrenal adenoma Intake Note: Patient present today for Adrenal adenoma office visit. Solar Energy Consultant And Designer Required: No Accompanied by: Self / Same As Patient Allergies No Known Allergies Allergy (Verified 03/23/25 08:29) Medication List - Last Reconciled 03/23/25 by Krystina Yan MD No Known Home Meds HPI Comments Details: 44 YO M who is seen in F/U for an left adrenal incidentaloma, status post left adrenalectomy with Dr. Jak Deras at [facility] 2020 due to suspicion of pheochromocytoma, with the official surgical path was benign with a 2 cm adrenocortical adenoma, coming in today for follow up. Last saw Dr. Colon January 2024, this is 1st visit with me. HPI He had an MRI of the abdomen/pelvis completed for back pain. This revealed a 1.8 cm indeterminate appearing L adrenal mass. There was no loss of signal on out of phase sequences, so this was not consistent with a lipid rich adenoma. He also had a CT scan completed 11/30/18 for back pain. This revealed a 2.0 cm L adrenal adenoma measuring 49 HU, however this was measured postcontrast. This was repeated as adrenal protocol 09/01/2019 with identification of a 2.1 cm L adrenal mass with precontrast HU measuring 31 HU. No relative washout was given. Absolute washout of 77.9% was given. This was not consistent with a lipid rich adenoma. a full biochemical workup which was negative for aminta's disease with a no rmal DSST. His 24 hour urine Dopamine level was elevated to 559. He was not taking any medications at the time. The remainder of his 24 hour urine catecholamines and metanephrines were WNL. The 24 hour urine collection was an adequate sample with a volume of 1.1 L and a Cr of 1.6. His 24 hour urine collection was repeated 09/01/2019 with urine Dopamine levels again elevated to 623 with a Volume of 1.45 L and a Cr of 2.13. There were no other abnormalities noted. His 24 hour urine collection was then repeated 10/12/2019 at [facility] with a total volume of 1.2 L, Creatinine 1.2 and 24 hour urine Dopamine WNL at 184. This was otherwise WNL as well. He was sent for a Dotatate PET CT which revealed an intensely avid 1.2 cm lesion within the R adrenal with max SUV 17, and an intensely avid 2.0 cm lesion within the L adrenal with max SUV 18. He did mention occasional spells with headache and flushing. He denied any abdominal pain or diarrhea during those times. He was referred to Endocrine surgery and after preparation with Doxazosin he underwent a L sided adrenalectomy 2020 due to the concern from Pheochromocytoma. 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 He had repeat imaging with an MRI of the abdomen 07/24/[address] adrenal 2023 which revealed no evidence of a mass within the R adrenal gland. He does report that headaches resolved after the surgery. He decided to make this appt today because he has been having some intermittent chest pain 2-3 years . once a week. With rest. Self resolves. feels like a bump. No other sx. Physical exam General: sitting comfortably in no acute distress HEENT: normocephalic/atraumatic, Neck: supple, Cardiac: normal heart sounds Pulm: normal breath sounds B/L, no added breath sounds ? Labs: Laboratory Tests 11/11/22 11/11/22 11/11/22 07:32 07:32 07:32 Sodium 140 Potassium 4.5 Creatinine 0.77 Estimated GFR > 60 Renin Aldosterone 3 DHEA Sulfate 197 Random Cortisol 11.7 ACTH Plasma Free Metaneph Plasma Free Normeta Plas Total Metaneph 11/11/22 11/11/22 11/11/22 07:33 07:33 07:33 Sodium Potassium Creatinine Estimated GFR Renin 0.17 L Aldosterone DHEA Sulfate Random Cortisol ACTH 37 Plasma Free Metaneph 31 Plasma Free Normeta 48 Plas Total Metaneph 79 Laboratory Tests 11/11/22 11/11/22 07:32 07:33 Potassium 4.5 Estimated GFR > 60 Renin 0.17 L Aldosterone 3 DHEA Sulfate 197 Random Cortisol 11.7 ACTH 37 Plas Tot Catecholamine 349 Dopamine 15 Epinephrine <20 Norepinephrine 334 Plasma Free Metaneph 31 Plasma Free Normeta [address] ABDOMEN WITHOUT AND WITH CONTRAST 12/17/23 CLINICAL INFORMATION: Benign neoplasm of adrenal gland COMPARISON: CT abdomen from 11/22/2020, MRI of abdomen from 12/22/2022 TECHNIQUE: Contiguous axial thin section helical images of the abdomen were performed before and after the administration of 85 mL of Omnipaque 350 intravenous contrast. The data set was reformatted in the coronal and sagittal planes and reviewed on an independent workstation. This CT examination was performed using dose optimization techniques as appropriate, variously including the following: *Automated exposure control *Adjustment of mA and/or kV according to patient size (this includes techniques or standardized protocols for targeted exams where dose is matched to indication/reason for exam; i.e. extremities or head) *Use of iterative reconstruction technique DLP: 628 mGy-cm FINDINGS: LUNG BASES: Lung bases are clear LIVER, GALLBLADDER, AND BILIARY TREE: Liver is of normal attenuation without intrahepatic masses, ductal dilatation.. Gallbladder is unremarkable. PANCREAS: There is no pancreatic masses, ductal dilatation or peripancreatic stranding. SPLEEN: Unremarkable ADRENAL GLANDS AND KIDNEYS: Left adrenal gland is surgically absent. Right adrenal gland is unremarkable. BOWEL LOOPS: Visualized bowel is normal. Stomach is partially distended. LYMPH NODES: There is no lymphadenopathy. VASCULAR: Unremarkable. BONES: Visualized lumbar spine revealed mild degenerative changes lower thoracic spine with Schmorl's hernias. CT/CT abdomen wo/w IV con IMPRESSION: Status post left adrenalectomy. Fleischner guidelines were followed. Imaging: MRI Abdomen: 07/24/2022 FINDINGS: LUNG BASES: The visualized lung bases are unremarkable.? LIVER, GALLBLADDER, AND BILIARY TREE: There is diffuse loss of signal on opposed phase gradient echo T1-weighted images consistent with diffuse hepatic steatosis. No focal liver lesion seen. No biliary ductal dilatation. The gallbladder is unremarkable with no evidence of gallbladder wall thickening, or obvious pericholecystic inflammatory changes.? PANCREAS: Unremarkable.? SPLEEN: Normal.? ADRENAL GLANDS: Left adrenal gland surgically absent. No recurrent mass in the adrenalectomy bed. Normal appearance of the right adrenal gland. No thickening or nodule seen.? KIDNEYS AND URETERS: The kidneys are normal in size, shape, and enhance symmetrically.? No hydronephrosis.? No perinephric stranding. ? GASTROINTESTINAL TRACT: No bowel obstruction.? No ascites or fluid collection. ? ABDOMINAL WALL: No significant hernia is appreciated.? LYMPH NODES: No lymphadenopathy. VASCULAR: Unremarkable. OSSEOUS STRUCTURES: Marrow signal normal. [facility] Medical History Adrenal adenoma Surgical History H/O partial adrenalectomy Family History Father No problems noted. Mother Diabetes Social History Alcohol intake: current Alcohol intake frequency: does not drink Patient Tobacco Use Status: Former Tobacco user Assessment & Plan Assessment & Plan (1) Adrenal adenoma: Code(s): D35.00 - Benign neoplasm of unspecified adrenal gland Category: Medical Qualifiers: Laterality: left Qualified Code(s): D35.02 - Benign neoplasm of left adrenal gland Plan: 44-year-old male with a history of left adrenalectomy in 2020 with pathology showing benign adrenal cortical adenoma.. Right adrenal gland appeared normal on imaging both in 2022 and 2023. Patient made this appointment today because he has been having intermittent central chest pains over the past 2-3 years which has been worsening and frequency, sounds like atypical chest pain, and he thought it might be related to his adrenal gland. At this visit I reassured him that his right adrenal gland has been unremarkable on imaging X 2. And even the pathology of the left adrenal gland was benign adenoma. At this point he should not be concerned about a pheochromocytoma, blood work was also normal from 2022 with normal plasma metanephrine and normetanephrine levels. Hi also discussed with the him how rare a pheochromocytoma is. At this time with his complaints of chest pain I had told him to talk to his PCP regarding further evaluation with a this is cardiac versus musculoskeletal versus acid reflux with PCP to guide further management. No endocrinology needs at this time. At this point, patient returned to the care of his primary care provider. Plan See above Coding Level of Care Code Est Pt Level 3 (31208) Diagnoses Adenoma of left adrenal gland D35.02 Laterality: left
--- OUTSIDE RECORDS SUMMARY | 2025-03-23 09:27 | XMS_ITS | Encounter Summary ---
Author Organization [facility] Address [address] [place] [address] Care Team Providers Care Key Carrier Name Role Phone Luis Carlos Wiley MD Primary Care Provider [phone] Reason for Visit * Reason Onset Date Comments rs cx appt 09/15/2024 Encounter Details Date Type Department Care Team ([facility] Contact Info) Description 09/15/2024 Telephone [facility] ADULT DENTAL [address] [place] [address] Richa Bardales rs cx appt Social History Tobacco Use Types Packs/Day Years Used Date Smoking Tobacco: Former Cigarettes 0.5 12 1 - 04/2013 Smokeless Tobacco: Never Depression Answer Date Recorded Patient Health Questionnaire-9 Score 1 12/12/2022 Housing Stability Answer Date Recorded What is your housing situation today? I have luiz adhikari 05/14/[address] you li ve. Do you have problems with any of the following? None of the above 05/14/2023 Food Insecurity Answer Date Recorded Within the past 12 months, y ou worried that your food would run out before you got money to buy more: Never True 05/14/2023 Within the past 12 months,th e food you bought just didn't last and you didn't have enough money to get more: Never True 12/2022 Transportation Answer Date Recorded In the past 12 months, has l ack of transportation kept you from medical appts, meetings, work or from getting things needed for daily living? No 05/14/2023 Utilities Answer Date Recorded In the past 12 months, has t he electric, gas, oil or water company threatened to shut off services in your home? No 05/14/2023 Depression Answer Date Recorded Patient Health Questionnaire-2 Score 0 12/12/2022 Sex and Gender Information Value Date Recorded Sex Assigned at Male 05/08/2022 10:18 AM EDT Legal Sex Male 10:18 AM EDT Gender Identity Male 05/08/2022 10:18 AM EDT Sexual Orientation Straight 05/08/2022 10 :18 AM EDT documented as of this encounter Miscellaneous Notes * Telephone Encounter - Lenora Vaughan - 09/15/2024 9:12 AM EDT Patient called in to rs same day cancelled appt. Patient has been informed there is a waiting period prior to rs missed appt. Office will reach out to reschedule when it is his turn again. Patient understood DR documented in this encounter Plan of Treatment Upcoming Encounters Date Type Department Care Team (Late st Contact Info) Description 04/06/2025 11:00 AM EDT Office Visit [facility] ADULT D[facility]AL [address] [place] [address] Oskar Wyman DDS [address] [place] [address] 04/20/2025 9:15 AM EDT Office Visit [facility] MED & PEDS [address] [place] [address] Luis Carlos Wiley MD [address] [place] [address] documented as of this encounter Visit Diagnoses Not on filedocumented in this encounter Additional Health Concerns Assessment Noted Time PHQ-9 Depression Total Score: 1 12/13/19 23 11:15 AM EDT documented as of this encounter Care Teams Key Carrier Relationship Specialty Start Date End Date Luis Carlos Wiley MD [address] [place] [address] PCP - General Internal Medicine 07/09/18 documented as of this encounter
--- OUTSIDE RECORDS SUMMARY | 2025-03-23 09:27 | XMS_ITS | Clinical Summary ---
Author Organization [employer] Address [address] [facility] [address] [place] [address] Care Team Providers Care Sustainability Specialist Name Role Phone Luis Carlos Wiley MD Primary Care Provider Allergies No known active allergies Medications gabapentin (Neurontin) 100 MG capsuleIndicatio ns:Pruritus scroti Take 1 capsule (100 mg) by mouth at bedtime. 30 capsule 11 3 Active Omeprazole 20 MG tablet delayed-release Take 20 mg by mouth in the morning. 30 tablet 2 4 Active hydroCHLOROthiaz kym 12.5 MG tabletIndication s:Primary hypertension Take 1 tablet (12.5 mg) by mouth Once per day. 30 tablet 11 4 Active fluticasone (Flonase) 50 MCG/ACT nasal sprayIndications :Nasal congestion Administer 1-2 sprays into each nostril Once per day. Shake gently. Before first use, prime pump. After use, clean tip and replace cap. 16 g 11 4 Active triamcinolone (Kenalog) 0.1 % creamIndications :Hx of nummular eczema Apply topically if needed in the morning and at bedtime (pain and swelling). 30 g 2 4 Active Diclofenac Sodium 1 % gelIndications:C ostochondritis To apply to the affected area 3 times a day 100 g 4 Active fexofenadine (Linda) 180 MG tablet Take 1 tablet (180 mg) by mouth if needed each day (Allergies). 30 tablet 3 5 Active hydrocortisone 1 % ointment Apply topically 2 times daily. 56 g 2 5 Active clindamycin (Cleocin) 150 MG capsule Take 1 capsule by mouth every 6 (six) hours during the day. 5 Active amoxicillin (Amoxil) 500 MG capsule Take 1 capsule (500 mg) by mouth every 8 (eight) hours for 7 days. 21 capsule 5 03/11/20 25 chlorhexidine (Peridex) 0.12 % solution Use 15 mL in the mouth or throat if needed in the morning, at noon, and at bedtime (PROPHYLAXIS) for up to 5 days. 110 mL 5 03/09/20 25 ibuprofen 800 MG tablet Take 1 tablet (800 mg) by mouth if needed in the morning, at noon, and at bedtime for mild pain or moderate pain for up to 5 days. 15 tablet 5 03/09/20 25 Active Problems Problem Noted Date Diagnosed Date Adrenal adenoma 09/19/2021 Hypertensive disorder 09/19/2021 Irritable bowel syndrome 12/16/2018 Gastritis 09/13/2015 Obesity 09/13/2015 Encounters Date Type Department Care Team Description 03/17/2025 Telephone [facility] [address] [place] [address] Luis Carlos Wiley MD Nurse Triage 03/16/2025 11:30 AM EDT Office Visit [facility] ADULT DENTAL [address] [place] [address] Nav Ty DMD 03/11/2025 Orders Only [facility] External Provider, [facility] 03/04/2025 3:00 PM EDT Office Visit [facility] ADULT DENTAL [address] [place] [address] Nav Ty DMD 01/26/2025 8:00 AM EDT Office Visit [facility] ADULT DENTAL [address] [place] [address] Nav Ty DMD from Last 3 Months Immunizations Immunization Administration Dates Next Due Hep B, adult 12/13/2015,11/01/2015 Influenza injectable quadriv alent IIV4 with preservative 06/05/2016 Influenza, IIV3, injectable 05/05/2015 Influenza, Split (incl. purified surface antigen ) 04/22/2013 Tdap 09/13/2015 Family History Medical History Relation Name Comments Diabetes type II Mother Relation Name Status Comments Mother Social History Tobacco Use Types Packs/Day Years Used Date Smoking Tobacco: Former Cigarettes 0.5 12 1 - 04/2013 Smokeless Tobacco: Never Tobacco Cessation:Counseling Given: Not Answered Depression Answer Date Recorded Patient Health Questionnaire-9 Score 1 09/29/2024 Patient Health Questionnaire-9 Score 1 09/29/2024 Last PHQ-9: Questionnaire Data Not on file 0 09/29/2024 Housing Stability Answer Date Recorded What is your housing situation today? I have luizhay adhikari 09/22/[address] you li ve. Do you have problems with any of the following? None of the above 09/22/2024 Food Insecurity Answer Date Recorded Within the past 12 months, y ou worried that your food would run out before you got money to buy more: Never True 09/22/2024 Within the past 12 months,th e food you bought just didn't last and you didn't have enough money to get more: Never True Transportation Answer Date Recorded In the past 12 months, has l ack of transportation kept you from medical appts, meetings, work or from getting things needed for daily living? No 09/22/2024 Utilities Answer Date Recorded In the past 12 months, has t he electric, gas, oil or water company threatened to shut off services in your home? No 09/22/2024 Depression Answer Date Recorded Patient Health Questionnaire-2 Score 0 09/29/2024 Internet Access Answer Date Recorded Internet Access Q1 Yes 09/22/2024 Internet Access Q2 Not on file 09/22/2024 Sex and Gender Information Value Date Recorded Sex Assigned at Male 05/08/2022 10:18 AM EDT Legal Sex Male 10:18 AM EDT Gender Identity Male 05/08/2022 10:18 AM EDT Sexual Orientation Straight 05/08/2022 10 :18 AM EDT Last Filed Vital Signs Vital Sign Reading Time Taken Comments Blood Pressure 150/100 03/16/2025 11:28 AM EDT Pulse 68 03/16/2025 11:28 AM EDT Temperature 36.6 C (97.9 F) 10/30/2024 11:17 AM EDT Respiratory Rate 18 10/30/2024 11:17 AM EDT Oxygen Saturation 98% 09/29/2024 8:58 AM EDT Inhaled Oxygen Concentration - - Weight 113 kg (249 lb) 10/30/2024 11:17 AM EDT Height 175.3 cm (5' 9 ) 10/30/2024 11:17 AM EDT Body Mass Index 36.77 10/30/2024 11:17 AM EDT Plan of Treatment Upcoming Encounters Date Type Department Care Team (Late st Contact Info) Description 04/06/2025 11:00 AM EDT Office Visit [facility] ADULT DENTAL [address] [place] [address] Oskar Wyman DDS [address] [place] [address] 04/20/2025 9:15 AM EDT Office Visit [facility] MED & PEDS [address], [place] [phone] Luis Carlos Wiley MD [address] [place] [address] Health Maintenance Due Date Last Done Comments CT Colonography 1979 Colonoscopy 1979 Colorectal Cancer Screening 1979 Dental Prophylaxis 1979 FIT DNA/Cologuard 1979 FIT 1979 FOBT 1979 HIV Screening 1979 Sigmoidoscopy 1979 Disability Screening 1979 Family Planning (PISQ) 1994 HPV Vaccines (1 - Male 3-dos e series) 1994 Hepatitis B Vaccines (3 of 3 - 19+ 3-dose series) 05/02/2016 12/13/2015, 11/01/2015 COVID-19 Vaccine (1 - 2023-2 5 season) 2025 Influenza Vaccine (#1) 2025 6, 05/05/2015, 04/22/2013 Dental Oral Exam 07/30/2025 01/26/2025 DTaP/Tdap/Td Vaccines (2 - T d or Tdap) 09/12/2025 09/13/2015 SDOH Screening 09/22/2025 09/22/2024 Alcohol/Substance Use Screening 09/29/2025 09/29/2024 Depression Screening 09/29/2025 09/29/2024, 09/29/2024 Dental X-Ray: Bitewings 01/27/2026 01/27/20 25, 07/30/2023 Tobacco Screening 03/16/2026 03/16/2025 Lipid Panel 01/09/2028 01/08/2023 Dental X-Ray: Full Mouth 01/28/2028 01/26/2025 Zoster Vaccines (1 of 2) 2029 RSV Patients and Patients Aged 60 years or older (1 - 1-dose 75+ series) 2054 Hepatitis C Screening Completed 01/08/2023 HIB Vaccines Aged Out No longer eligi ble based on patient's age to complete this topic Hepatitis A Vaccines Aged Out No long er eligible based on patient's age to complete this topic IPV Vaccines Aged Out No longer eligi ble based on patient's age to complete this topic Meningococcal B Vaccine Aged Out No l onger eligible based on patient's age to complete this topic Meningococcal Vaccine Aged Out No neo hugh eligible based on patient's age to complete this topic Pneumococcal Vaccine: Pediatrics (0 to 5 Years) and At-Risk Patients (6 to 49) Years Aged Out No longer eligible b ased on patient's age to complete this topic RSV under 20 months Aged Out No longe r eligible based on patient's age to complete this topic Rotavirus Vaccines Aged Out No longer eligible based on patient's age to complete this topic Procedures Procedure Name Priority Date/Time Associated Diagnosis Comments CASE PRESENTATION, DETAILED AND EXTENSIVE TREATMENT PLANNING Routine 03/16/2025 11:30 AM EDT LIMITED ORAL EVALUATION - PROBLEM FOCUSED Routine 03/16/2025 11:30 AM EDT XR CHEST 1 VIEW Routine 03/11/2025 10:52 PM EDT HIGH SENSITIVITY TROPONIN I Routine 03/11/2025 8:06 PM EDT MAGNESIUM Routine 03/11/2025 8:06 PM EDT COMPREHENSIVE METABOLIC PANEL Routine 03/11/2025 8:06 PM EDT CBC WITH AUTO DIFFERENTIAL Routine 03/11/2025 8:06 PM EDT CASE PRESENTATION, DETAILED AND EXTENSIVE TREATMENT PLANNING Routine 03/04/2025 3:00 PM EDT 10 DL RESIN-BASED COMPOSITE - 2 SURF, ANTERIOR Routine 03/04/2025 3:00 PM EDT PERIODIC ORAL EVALUATION - ESTABLISHED PATIENT Routine 01/26/2025 8:00 AM EDT INTRAORAL - COMPLETE SERIES OF RADIOGRAPHIC IMAGES Routine 01/26/2025 8:00 AM EDT 2,3,5,9,11,12,14,15 PARTIAL DENTURE - RESIN Routine 01/26/2025 12:00 AM EDT 31 O COMPOSITE FILLING Routine 01/26/2025 12:00 AM EDT 21 DO COMPOSITE FILLING Routine 01/26/2025 12:00 AM EDT 21 O AMALGAM FILLING Routine 01/26/2025 12:00 AM EDT 19 ELIN AMALGAM FILLING Routine 01/26/2025 12:00 AM EDT 18 O AMALGAM FILLING Routine 01/26/2025 12:00 AM EDT 10 L COMPOSITE FILLING Routine 01/26/2025 12:00 AM EDT 10 D COMPOSITE FILLING Routine 01/26/2025 12:00 AM EDT 10 M COMPOSITE FILLING Routine 01/26/2025 12:00 AM EDT 8 L COMPOSITE FILLING Routine 01/26/2025 12:00 AM EDT 8 F COMPOSITE FILLING Routine 01/26/2025 12:00 AM EDT 8 I COMPOSITE FILLING Routine 01/26/2025 12:00 AM EDT 8 D COMPOSITE FILLING Routine 01/26/2025 12:00 AM EDT 8 M COMPOSITE FILLING Routine 01/26/2025 12:00 AM EDT 7 L COMPOSITE FILLING Routine 01/26/2025 12:00 AM EDT 28 B(V) COMPOSITE FILLING Routine 01/26/2025 12:00 AM EDT 28 O AMALGAM FILLING Routine 01/26/2025 12:00 AM EDT HEPATITIS PANEL, GENERAL Routine 01/08/2023 10:11 AM EDT Elevated liver function tests LIPID PANEL, STANDARD Routine 01/08/2023 10:11 AM EDT Primary hypertension from Last 3 Months or Most Recently Relevant to Health Maintenance Results * XR Chest 1 View (03/11/2025 10:52 PM EDT) Anatomical Region Laterality Modality Chest Radiographic [place] ging 03/11/2025 10:5 2 PM EDT Narrative 03/11/2025 10:53 PM EDT [address] [address] XRay Report Signed Patient: Donny Campbell MR#: [id number] : 1980 Acct:[id number] Age/Sex: 44 / M ADM Date: 03/11/25 Loc: HO.ED Attending Dr: Ordering Physician: Heather Espinosa MD Date of Service: 03/11/25 Procedure(s): XR chest 1V Accession Number(s): [id number] cc: Luis Carlos Wiley MD; Heather Espinosa MD Reason for Exam: CP CLINICAL HISTORY: CP 1 view chest x-ray Comparison: None provided Findings: No consolidation or effusion. Heart size is normal. No acute fracture. IMPRESSION: 1. No acute findings. This document has been electronically signed by: Christian Mckee MD on 03/11/2025 22:52:03 Dictated By: Christian Mckee MD Signed By: <Electronically signed by Christian Mckee MD in OV> 03/11/252251 DD/ 51 TD/TT: 03/11/252251 Noodle Catal[employer] Maker: Procedure Note Donotuseinterpreter, Image - 03/11/[address] [address] XRay Report Signed Patient: Donny CampbellMR#: [id number] : 1980Acct:[id number] Age/Sex: 44 / MADM Date: 03/11/25 Loc: .ED Attending Dr: Ordering Physician: Heather Espinosa MD Date of Service: 03/11/25 Procedure(s): XR chest 1V Accession Number(s): [id number] cc: Luis Carlos Wiley MD; Heather Espinosa MD Reason for Exam: CP CLINICAL HISTORY: CP 1 view chest x-ray Comparison: None provided Findings: No consolidation or effusion. Heart size is normal. No acute fracture. IMPRESSION: 1. No acute findings. This document has been electronically signed by: Christian Mckee MD on 03/11/2025 22:52:03 Dictated By: Christian Mckee MD Signed By: <Electronically signed by Christian Mckee MD in OV> 03/11/252251 DD/ 51 TD/TT: 03/11/252251 Noodle Catalyst Maker: [facility] External Provider IMG XR PROCEDURES Final Result * High Sensitivity Troponin I (03/11/2025 8:06 PM EDT) [facility] TROPONIN I HIGH SENSITIVITY <2.7 <3.5 - 35.0 ng/L [facility] Comment:The Dowd high sens itivity Troponin-I results should beused in conjunction with other diagnostic information suchas ECG, clinical observations and information, and patientsymptoms to aid in the diagnosis of [place]. 03/11/2025 8:06 PM EDT 03/11/2025 8:09 PM EDT Generic External Data Provider LAB BLOOD ORDERAB LES Final Result [facility] [address] [place] [phone] * (ABNORMAL) CBC auto differential (03/11/2025 8:06 PM EDT) [facility] White Blood Count 9.4 4.8 - 10.8 X10*3/uL [facility] Red Blood Count 5.50 4.60 - 5.80 X10*6/uL [facility] Hemoglobin 14.5 14.0 - 18.0 g/dl [facility] Hematocrit 42.5 42.0 - 52.0 % [facility] Mean Corpuscular Volume 77.3(L) 80.0 - 98.0 fL [facility] Mean Corpuscular Hemoglobin 26.4(L) 27.0 - 33.0 pg [facility] Mean Corpuscular HGB Conc 34.1 31.0 - 36.0 g/dl [facility] Red Cell Distribution Width 13.8 11.0 - 16.0 % [facility] Platelet Count 292 160 - 400 X10*3/uL [facility] Mean Platelet Volume 8.3(L) 9.4 - 12.4 fL [facility] Neutrophils Percent Auto 45.8 45 - 73 % [facility] Imm Gran Pct Auto 0.1 0.0 - 0.4 % [facility] Lymphocytes Percent Auto 41.6(H) 20 - 40 % [facility] Monocytes Percent Auto 8.8 2 - 11 % [facility] Eosinophils Percent Auto 3.1 0 - 4 % [facility] Basophils Percent Auto 0.6 0 - 2 % [facility] NRBC Pct Auto 0.0 0.0 - 0.2 /100WBC [facility] Neutrophils Absolute Auto 4.3 2.0 - 8.3 x10*3/uL [facility] Imm Gran Abs Auto 0.01 0.00 - 0.03 X10*3/uL [facility] Lymphocytes Absolute Auto 3.9 1.2 - 4.9 X10*3/uL [facility] Monocytes Absolute Auto 0.8 0.1 - 1.2 X10*3/uL [facility] Eosinophils Absolute Auto 0.3 0.0 - 0.4 X10*3/uL [facility] Basophils Absolute Auto 0.1 0.0 - 0.2 X10*3/uL [facility] NRBC Abs Auto 0.000 0.0 - 0.012 X10*3/uL [facility] 03/11/2025 8:06 PM EDT 03/11/2025 8:09 PM EDT us Generic External Data Provider LAB BLOOD ORDERAB LES Final Result [facility] [address] [place] [phone] * Magnesium (03/11/2025 8:06 PM EDT) Magnesium 2.2 1.6 - 2.6 mg/dL [facility] 03/11/2025 8:06 PM EDT 03/11/2025 8:09 PM EDT us Generic External Data Provider LAB BLOOD ORDERAB LES Final Result [facility] [address] [place] [phone] * (ABNORMAL) Comprehensive Metabolic Panel (03/11/2025 8:06 PM EDT) Sodium 140 135 - 145 mmol/L [facility] Potassium 4.3 3.3 - 5.1 mmol/L [facility] Chloride 108 96 - 108 mmol/L [facility] Carbon Dioxide 26 22 - 29 mmol/L [facility] Anion Gap 10(L) 12 - 20 [facility] Urea Nitrogen (BUN) 17(H) 9 - 16 mg/dL [facility] Creatinine, Serum 0.84 0.5 - 1.4 mg/dL [facility] Creatinine Clr Calc Pharmacy 132.8 [facility] Comment:eGFR (calculated fro m the MDRD study equation) and eCrCl(calculated from the Cockcroft-Gault equation) are based ondifferent parameters and may not yield comparable results.If eCrCl result is absurd, please check patient'sheight/weight. Estimated Glomerular Filt Rate >60 [facility] Comment:Chronic Kidney Disea se: Estimated GFR < 60 mL/min/1.40v1Kncmbo Kidney Disease: Estimated GFR < 15 mL/min/1.73m2 Glucose 92 60 - 115 mg/dL [facility] Calcium 9.4 8.4 - 10.2 mg/dL [facility] Bilirubin, Total 0.4 0.0 - 1.0 mg/dL [facility] Aspartate Amino Transferase 37 5 - 37 U/L [facility] Alanine Aminotransferase 52(H) 0 - 40 U/L [facility] Total Protein 7.5 6.5 - 8.0 g/dL [facility] Albumin Level 4.6 3.5 - 5.0 g/dL [facility] Alkaline Phosphatase 119(H) 39 - 117 U/L [facility] 03/11/2025 8:06 PM EDT 03/11/2025 8:09 PM EDT us Generic External Data Provider LAB BLOOD ORDERAB LES Final Result [facility] [address] [place] [phone] [phone] * (ABNORMAL) Hepatitis Panel, General (01/08/2023 10:11 AM EDT) Hepatitis A Antibody Total NON-REACT PREM NON-REACT PREM [facility] [place] [facility] Comment: For additional information, please refer to http://A[employer]ok[employer]/faq/YBT881 (This link is being provided for informational/ educational purposes only.) Hepatitis B Surface Antibody QL REACTIVE( A) NON-REACT PREMgripNote [place] [facility] Hepatitis B Surface Ag NON-REACT PREM NON-REACT [facility]ripNote [facility] Comment: For additional information, please refer to http://[employer]/faq/JOJ013 (This link is being provided for informational/ educational purposes only.) Hepatitis B Core Antibody Total NON-REACT PREM NON-REACT PREM [facility] Comment: For additional information, please refer to http://[employer]/faq/LKL960 (This link is being provided for informational/ educational purposes only.) Hepatitis C Antibody NON-REACT PREM NON-REACT PREM [facility] [place] [facility] Comment: HCV antibody was non-reactive. There is no laboratory evidence of HCV infection. In most cases, no further action is required. However, if recent HCV exposure is suspected, a test for HCV RNA (test code 23932) is suggested. For additional information please refer to http://[employer]/faq/RTI16p6 (This link is being provided for informational/ educational purposes only.) 01/08/2023 10:1 1 AM EDT 01/08/2023 10:12 AM EDT Narrative [facility] - 01/09/2023 7:50 AM EDT FASTING:NO FASTING: NO us Luis Carlos Wiley MD LAB BLOOD ORDERABLES Final Result [facility] [address], [place] [address] [facility] [place] [facility] [address] [place] [phone] * (ABNORMAL) Lipid Panel, Standard (01/08/2023 10:11 AM EDT) Cholesterol, Total 184 <200 mg/dL [facility] HDL Cholesterol 49 > OR = 40 mg/dL [facility] Triglycerides 104 <150 mg/dL [facility] LDL Cholesterol 114(H) mg/dL (calc) [facility] Comment: Reference range: <100 Desirable range <100 mg/dL for primary prevention; <70 mg/dL for patients with CHD or diabetic patients with > or = 2 CHD risk factors. LDL-C is now calculated using the Alex-Judith calculation, which is a validated novel method providing better accuracy than the Friedewald equation in the estimation of LDL-C. Alex LIANG et al. LIAN. 2013;310(19): 9315-6239 (http://education.myContactCard/faq/YFB114) Chol/HDLC Ratio 3.8 <5.0 (calc) [employer] Non-HDL Cholesterol 135(H) <130 mg/dL (calc) [facility] Comment: For patients with diabetes plus 1 major ASCVD risk factor, treating to a non-HDL-C goal of <100 mg/dL (LDL-C of <70 mg/dL) is considered a therapeutic option. Blood Venous blood specimen / Unknown 01/08/2023 10:11 AM EDT 01/08/2023 10:12 AM EDT Narrative [facility] - 01/09/2023 7:50 AM EDT FASTING:NO FASTING: NO us Luis Carlos Wiley MD LAB BLOOD ORDERABLES Final Result [facility] [address], [place] [address] [facility] [address] [place] [phone] from Last 3 Months or Most Recently Relevant to [place] [address] [facility] [place] [address] Care Teams Sustainability Specialist Relationship Specialty Start Date End Date Luis Carlos Wiley MD [address] [place] [address] [place] [address] PCP - General Internal Medicine 07/09/18
--- OUTSIDE RECORDS SUMMARY | 2025-03-23 09:27 | XMS_ITS | Encounter Summary ---
Author Organization [employer] Address [address] [facility] 7 [place] [address] Care Team Providers Care Purification Director Name Role Phone Luis aCrlos Wiley MD Primary Care Provider [phone] Reason for Referral * Imaging (Routine) - Closed Specialty Diagnoses / Procedures Referred By Nikole cruz Referred To Contact Radiology Diagnoses Elevated liver function tests Procedures US Abdomen Complete Luis Carlos Wiley MD [address] [place] [address] Phone: tel: fax: [address] Phone: tel: fax: Referral ID Status Reason Start Date Expiration Date Visits Re quested Visits Authorized [id number] Closed 01/10/2023 01/10/2024 1 1 Encounter Details Date Type Department Care Team ([facility] st Contact Info) Description 01/10/2023 Orders Only [facility] [address] [place] [address] Luis Carlos Wiley MD [address] [place], [place] [phone] Elevated liver function tests (Primary Dx) Social History Tobacco Use Types Packs/Day Years Used Date Smoking Tobacco: Former Cigarettes 0.5 12 1 - 04/2013 Smokeless Tobacco: Never Depression Answer Date Recorded Patient Health Questionnaire-9 Score 1 12/12/2022 Depression Answer Date Recorded Patient Health Questionnaire-2 Score 0 12/12/2022 Sex and Gender Information Value Date Recorded Sex Assigned at Male 05/08/2022 10:18 AM EDT Legal Sex Male 10:18 AM EDT Gender Identity Male 05/08/2022 10:18 AM EDT Sexual Orientation Straight 05/08/2022 10 :18 AM EDT COVID-19 Exposure Response Date Recorded In the last 10 days, have yo u been in contact with someone who was confirmed or suspected to have Coronavirus/COVID-19? No / Unsure 01/08/2023 9:17 AM EDT documented as of this encounter Plan of Treatment Upcoming Encounters Date Type Department Care Team (Late st Contact Info) Description 04/06/2025 11:00 AM EDT Office Visit [facility] ADULT DENTAL [address] [place] [address] KevinuJeffl, DDS [address] [place] [address] 04/20/2025 9:15 AM EDT Office Visit [facility] MED & PEDS [address] [place] [address] Luis Carlos Wiley MD [address] [place] [address] documented as of this encounter Procedures Procedure Name Priority Date/Time Associated Diagnosis Comments US ABDOMEN COMPLETE Routine 02/12/2023 9 :50 AM EDT Elevated liver function tests documented in this encounter Results * US Abdomen Complete (02/12/2023 9:50 AM EDT) Anatomical Region Laterality Modality Abdomen Ultrasound 02/12/2023 9:50 AM EDT Narrative 02/12/2023 5:08 PM EDT [address] [address] Ultrasound Report Signed Patient: Donny Negrete MR#: [id number] 3 : 1980 Acct:[id number] Age/Sex: 42 / M ADM Date: 02/12/23 Loc: HO.US Attending Dr: Luis Carlos Wiley MD Ordering Physician: Luis Carlos Wiley MD Date of Service: 02/12/23 Procedure(s): US abdomen complete Accession Number(s): [id number] cc: Luis Carlos Wiley MD EXAMINATION: US ABDOMEN COMPLETE CLINICAL INFORMATION: Elevated LFTs. COMPARISON: MRI abdomen without and with contrast 07/24/2022. CT abdomen without and with contrast 11/22/2020. TECHNIQUE: Real-time imaging of the abdominal viscera. FINDINGS: PANCREAS: Not visualized due to shadowing from overlying bowel gas. ABDOMINAL AORTA: The proximal, mid, and distal segments are normal in caliber. INFERIOR VENA CAVA: Visualized portions are normal. LIVER: The liver is normal in size. Increased coarsening and echogenicity of the liver parenchyma with focal sparing adjacent to gallbladder fossa. No focal hepatic lesion. There is no intrahepatic biliary duct dilatation seen. GALLBLADDER: Normal. The gallbladder is physiologically distended without evidence of stones, sludge, polyps, wall thickening or pericholecystic fluid. COMMON BILE DUCT: Normal in caliber measuring 0.5 cm in diameter. RIGHT KIDNEY: Normal. No hydronephrosis. No renal calculi or focal parenchymal lesions. The kidney measures 12.4 cm in maximum dimension. LEFT KIDNEY: Normal. No hydronephrosis. No renal calculi or focal parenchymal lesions. The kidney measures 12.3 cm in maximum dimension. SPLEEN: Normal. The spleen measures 11.3 cm in maximum dimension. FREE FLUID: None. US/US abdomen complete IMPRESSION: Increased coarsening and echogenicity of the liver parenchyma suggesting hepatic steatosis or hepatocellular disease with areas of fatty sparing adjacent to the gallbladder fossa. Dictated By: Fina Zaldivar Signed By: <Electronically signed by Fina Zaldivar in [place]> 02/12/23 1705 DD/ 0950 TD/TT: Data Integrity Specialist: Procedure Note Donotuseinterpreter, Image - 02/12/[address] [address] Ultrasound Report Signed Patient: Donny NegreteMR#: [id number] 3 : 1980Acct:[id number] Age/Sex: 42 / MADM Date: 02/12/23 Loc: HO.US Attending Dr: Luis Carlos Wiley MD Ordering Physician: Luis Carlos Wiley MD Date of Service: 02/12/23 Procedure(s): US abdomen complete Accession Number(s): [id number] cc: Luis Carlos Wiley MD EXAMINATION: US ABDOMEN COMPLETE CLINICAL INFORMATION: Elevated LFTs. COMPARISON: MRI abdomen without and with contrast 07/24/2022. CT abdomen without and with contrast 11/22/2020. TECHNIQUE: Real-time imaging of the abdominal viscera. FINDINGS: PANCREAS: Not visualized due to shadowing from overlying bowel gas. ABDOMINAL AORTA: The proximal, mid, and distal segments are normal in caliber. INFERIOR VENA CAVA: Visualized portions are normal. LIVER: The liver is normal in size. Increased coarsening and echogenicity of the liver parenchyma with focal sparing adjacent to gallbladder fossa. No focal hepatic lesion. There is no intrahepatic biliary duct dilatation seen. GALLBLADDER: Normal. The gallbladder is physiologically distended without evidence of stones, sludge, polyps, wall thickening or pericholecystic fluid. COMMON BILE DUCT: Normal in caliber measuring 0.5 cm in diameter. RIGHT KIDNEY: Normal. No hydronephrosis. No renal calculi or focal parenchymal lesions. The kidney measures 12.4 cm in maximum dimension. LEFT KIDNEY: Normal. No hydronephrosis. No renal calculi or focal parenchymal lesions. The kidney measures 12.3 cm in maximum dimension. SPLEEN: Normal. The spleen measures 11.3 cm in maximum dimension. FREE FLUID: None. US/US abdomen complete IMPRESSION: Increased coarsening and echogenicity of the liver parenchyma suggesting hepatic steatosis or hepatocellular disease with areas of fatty sparing adjacent to the gallbladder fossa. Dictated By: Fina Zaldivar Signed By: <Electronically signed by Fina Zaldivar in [place]> 02/12/23 1705 DD/ 0950 TD/TT: Data Integrity Specialist: Luis Carlos Wiley MD IMG US PROCEDURES Final Res ult documented in this encounter Visit Diagnoses Diagnosis Elevated liver function tests- Primary Other abnormal blood chemistry documented in this encounter Additional Health Concerns Assessment Noted Time PHQ-9 Depression Total Score: 1 12/13/19 11:15 AM EDT documented as of this encounter Care Teams Purification Director Relationship Specialty Start Date End Date Luis Carlos Wiley MD [address] [place] [id number] PCP - General Internal Medicine 07/09/18 documented as of this encounter
--- OUTSIDE RECORDS SUMMARY | 2025-03-23 09:27 | XMS_ITS | Clinical Summary ---
Author Organization [facility] Address [address] [place] [address] Care Team Providers Care Quality Inspector Name Role Phone Unavailable Primary Care Provider Unavailabl e Social History Tobacco Use Types Packs/Day Years Used Date Smoking Tobacco: Never Assessed Sex and Gender Information Value Date Recorded Sex Assigned at Not on file Legal Sex Male 4:34 AM EST Gender Identity Not on file Sexual Orientation Not on file Plan of Treatment Health Maintenance Due Date Last Done Comments DTaP,Tdap,and Td Vaccines (1 - Tdap) 1998 Hepatitis B Vaccines (1 of 3 - 19+ 3-dose series) 1998 Depression Screening 07/09/2024 COVID-19 Vaccine ( - 2023-2 5 season) 2025 Influenza Vaccine (#1) 2025 HIB Vaccines Aged Out No longer eligi ble based on patient's age to complete this topic HPV Vaccines Aged Out No longer eligi ble based on patient's age to complete this topic Hepatitis A Vaccines Aged Out No long er eligible based on patient's age to complete this topic IPV Vaccines Aged Out No longer eligi ble based on patient's age to complete this topic MMR Vaccines Aged Out No longer eligi ble based on patient's age to complete this topic Meningococcal ACWY Vaccine Aged Out N o longer eligible based on patient's age to complete this topic Meningococcal B Vaccine Aged Out No l onger eligible based on patient's age to complete this topic Pneumococcal Vaccine: Pediat rics (0 to 5 Years) and At-Risk Patients (6 to 49 Years) Aged Out No longer eligible b ased on patient's age to complete this topic RSV Immunization Patients Un zahra 20 months Aged Out No longer eligible b ased on patient's age to complete this topic Varicella Vaccines Aged Out No longer eligible based on patient's age to complete this topic
== END 2025-03-23 08:53 | disposition home or self-care (01) ==
LOC: HO.ENCR 08:24
PROVIDERS: PCP Internal Medicine; Visit Provider Student in an Organized Health Care Education/Training Program
DX: D35.02 Benign neoplasm of left adrenal gland (principal)
CPT/HCPCS: 99213